=== PATIENT | female | born 1980 | race Caucasian/White ===

== ENCOUNTER 2021-06-11 05:48 | Emergency (ER) | payer SELFPAY ==
[~2021-06-11] VITALS: Ht 152.4 cm; Wt 70.0 kg
[~2021-06-11 05:48] MED LIST: AZIT-21 PO; GUAI100L2; PRCD5U PO; PREN1TAB49; PRENATAL VITAMINS
--- NOTE | 2021-06-11 06:15 | ED Respiratory ---
General Chief Complaint: Respiratory Problems Stated Complaint: ASTHMA,SOB Source: patient Exam Limitations: no limitations History of Present Illness Date Seen by Provider: Jun 11, 2021 Time Seen by Provider: 06:02 Initial Comments 41-year-old female to the emergency department today with a chief complaint of feeling a little short of breath and an increased cough this morning. Patient states her symptoms have been coming on for about 24 hours. She states she believes her symptoms are exacerbated by allergies. She is not Covid vaccinated and currently is declining a Covid test here in the emergency department. She denies runny nose, sore throat, congestion. No nausea, vomiting, diarrhea. No swelling in her legs or pain in her calves. No reported fevers or chills. All other review of systems reviewed and negative except as stated. Timing/Duration: this morning Severity: mild Prior Episodes/Possible Cause: occasional episodes Associated Symptoms: cough Allergies and Home Medications Allergies Coded Allergies: Penicillins (Unverified Allergy, Intermediate, RASH/SOA, 03/16/09) Latex (Unverified Allergy, Mild, 02/28/09) Uncoded Allergies: [id number] (PENICILLINASE) (Allergy, Mild, 02/28/09) Home Medications Azithromycin 250 Mg Tab, 0 PO Z-MILLICENT Prescribed by: ANTHONY MURPHY on 03/16/09815 Promethazine/Codeine 5 Ml Syrp, 5 ML PO Q4H PRN Prescribed by: ANTHONY MURPHY on 03/16/09815 Patient Home Medication List Home Medication List Reviewed: Yes Review of Systems Review of Systems Constitutional: see HPI EENTM: no symptoms reported Respiratory: cough, short of breath Cardiovascular: no symptoms reported Gastrointestinal: no symptoms reported Genitourinary: no symptoms reported : No Musculoskeletal: no symptoms reported Skin: no symptoms reported All Other Systems Reviewed Negative Unless Noted: Yes Past Fkqbuzg-Mscqun-Zftrvz Hx Patient Social History Tobacco Use?: No Use of E-Cig and/or Vaping dev: No Substance use?: No Alcohol Use?: No Pt feels they are or have been: No Immunizations Up To Date Influenza Vaccine Up-to-Date: No; Not Current Past Medical History Reproductive Disorders: No Physical Exam Vital Signs - First Documented 06/11/21 06:02 Temp 36.3 Pulse 81 Resp 20 B/P (MAP) 143/104 (117) Pulse Ox 98 O2 Delivery Room Air Capillary Refill : Height: '" Weight: lbs. oz. kg; BMI Method: General Appearance: WD/WN, no apparent distress Eyes: Bilateral Eye Normal Inspection, Bilateral Eye PERRL, Bilateral Eye EOMI HEENT: PERRL/EOMI, pharynx normal Neck: full range of motion, supple, normal inspection Respiratory: lungs clear, normal breath sounds, no respiratory distress, no accessory muscle use Cardiovascular: regular rate, rhythm Gastrointestinal: non tender, soft Extremities: non-tender, normal inspection, no pedal edema, no calf tenderness Neurologic/Psychiatric: alert, normal mood/affect, oriented x 3 Skin: normal color, warm/dry Progress/Results/Core Measures Suspected Sepsis SIRS Temperature: Pulse: Respiratory Rate: Blood Pressure / Mean: Results/Orders My Orders Orders - SKY SIMPSON MD Chest 1 View, Ap/Pa Only (06/11/21 06:10) Vital Signs/I&O 06/11/21 06/11/21 06:02 06:57 Temp 36.3 Pulse 81 77 Resp 20 18 B/P (MAP) 143/104 (117) 129/101 Pulse Ox 98 99 O2 Delivery Room Air Room Air Capillary Refill : Diagnostic Imaging Diagonstic Imaging: Xray Plain Films/CT/US/NM/MRI: chest Comments chest xray viewed and interpreted by me - nothing acute Departure Impression Primary Impression: Cough Disposition: 01 HOME, SELF-CARE Condition: Stable Departure-Patient Inst. Decision time for Depature: 06:13 Referrals: MARIA G JUSTICE APRN (PCP/Family) Primary Care Physician Patient Instructions: Cough, Adult (DC) Add. Discharge Instructions: Continue to use your allergy medications as prescribed by your doctor. Mask and social distance to prevent Covid exposures. Return to the Emergency Department if you have worsening cough, shortness of breath, fever or any other emergent, concerning symptoms. SKY SIMPSON MD Jun 11, 2021 06:15
[2021-06-11 06:57] VITALS: BP 129/101
--- NOTE | 2021-06-11 07:56 | Diagnostic Imaging Report ---
INDICATION: Asthma attack and dry cough. TIME OF EXAM: 6:33 AM No prior studies are available for comparison. The heart size is normal. The pulmonary vascularity is unremarkable. The lungs are clear. No infiltrate, effusion or pneumothorax is detected. IMPRESSION: No acute cardiopulmonary process is detected. Dictated by: Dictated on workstation # [id number]
== END 2021-06-11 06:55 | disposition home or self-care (01) ==
LOC: EDUNIT# 05:48 → ER 05:55
DX: R05 Cough (principal)
CPT/HCPCS: 71045